=== PATIENT | female | born 1955 | race Caucasian/White ===

== ENCOUNTER → 2016-12-12 | Outpatient (CLI) | payer MEDICAID, OTHER | LOC: FIMAGING 11:57 | DX: R92.0 Mammographic microcalcification found on diagnostic imaging of breast (principal) | CPT/HCPCS: G0206 ==

== ENCOUNTER 2017-10-09 19:00 | Emergency (ER) | payer MEDICAID ==
[2017-10-09 19:21] VITALS: RESP 16
[2017-10-09] MEDS ORDERED: MECLIZINE HCL 25 MG TAB PO ONE (19:31)
[2017-10-09] MEDS ORDERED: ONDANSETRON DISINTEGRATING 4 MG TAB PO ONE (19:31)
--- NOTE | 2017-10-09 19:34 | EDPHY ---
H & P Stated Complaint: DIZZINESS X 5 DAYS Time Seen by Provider: 10/09/17 19:21 HPI/ROS: CHIEF COMPLAINT: Vertigo HISTORY OF PRESENT ILLNESS: The patient is a 62-year-old female who comes to the emergency department complaining of paroxysmal vertigo. She states that it began on Monday when she woke up from bed. It has been intermittent ever since and is more severe when she changes positions such as sitting up, bending over turning her head right or left. No trauma. No fever. No weakness numbness or paralysis. No bowel or bladder abnormalities. The patient states that her mom had BPPV and she feels that her symptoms are similar. No upper respiratory symptoms. She has had mild nausea but no vomiting. Her symptoms do fatigued after change in position. She denies chest pain or palpitations. REVIEW OF SYSTEMS: Constitutional: denies: chills, fever, recent illness, recent injury EENTM: denies: blurred vision, double vision, nose congestion Respiratory: denies: cough, shortness of breath Cardiac: denies: chest pain, irregular heart rate, lightheadedness, palpitations Gastrointestinal/Abdominal: denies: abdominal pain, diarrhea, vomiting, blood streaked stools Genitourinary: denies: dysuria, frequency, hematuria, pain Musculoskeletal: denies: joint pain, muscle pain Skin: denies: lesions, rash, jaundice, bruising Neurological: denies: headache, numbness, paresthesia, tingling, weakness Hematologic/Lymphatic: denies: blood clots, easy bleeding, easy bruising Immunologic/allergic: denies: HIV/AIDS, transplant EXAM: GENERAL: Well-appearing, well-nourished and in no acute distress. HEAD: Atraumatic, normocephalic. EYES: Nystagmus primarily to the left worsened by Yann maneuver. Pupils equal round and reactive to light, extraocular movements intact, sclera anicteric, small ptyrigeon left eye ENT: TMs normal, nares patent, oropharynx clear without exudates. Moist mucous membranes. NECK: Normal range of motion, supple without lymphadenopathy or JVD. LUNGS: Breath sounds clear to auscultation bilaterally and equal. No wheezes rales or rhonchi. HEART: Regular rate and rhythm without murmurs, rubs or gallops. ABDOMEN: Soft, nontender, normoactive bowel sounds. No guarding, no rebound. No masses appreciated. BACK: No CVA tenderness, no spinal tenderness, step-offs or deformities EXTREMITIES: Normal range of motion, no pitting or edema. No clubbing or cyanosis. NEUROLOGICAL: NIH stroke score 0, Cranial nerves II through XII grossly intact. Normal speech, normal gait. 5/5 strength, normal movement in all extremities, normal sensation, normal cerebellar exam, normal balance on each foot. PSYCH: Normal mood, normal affect. SKIN: Warm, dry, normal turgor, no visible rashes or lesions. Source: Patient Exam Limitations: No limitations - Personal History Current Tetanus Diphtheria and Acellular Pertussis (TDAP): No - Medical/Surgical History Hx Asthma: No Hx Chronic Respiratory Disease: No Hx Diabetes: No Hx Cardiac Disease: No Hx Renal Disease: No Hx Cirrhosis: No Hx Alcoholism: No Hx HIV/AIDS: No Hx Splenectomy or Spleen Trauma: No Other PMH: depression - Family History Significant Family History: No pertinent family hx - Social History Smoking Status: Current every day smoker Alcohol Use: Sober Drug Use: None Constitutional: Initial Vital Signs Temperature (C) 36.9 C 10/09/17 19:19 Heart Rate 95 10/09/17 19:19 Respiratory Rate 16 10/09/17 19:19 Blood Pressure 132/82 H 10/09/17 19:19 O2 Sat (%) 92 10/09/17 19:19 O2 Delivery Mode Room Air Allergies/Adverse Reactions: Penicillins Allergy (Unknown, Verified 10/08/14 11:51) Home Medications: Medication Instructions Recorded Amitriptyline HCl [Elavil] 50 mg PO HS 10/08/14 Citalopram Hydrobromide [Celexa] 40 mg PO DAILY 10/08/14 Wellbutrin 100mg (RX) 10/12/15 Estradiol 08/22/16 Baclofen 10/09/17 GABAPENTIN 10/09/17 Hydroxyzine HCl 10/09/17 Meclizine HCl [Meclizine HCl 25 mg 25 mg PO BID #20 tab 10/09/17 (RX,OTC)] Progesterone 10/09/17 Ranitidine HCl 10/09/17 rOPINIRole HCL 10/09/17 Medical Decision Making ED Course/Re-evaluation: 8:40 p.m. the patient is feeling much better after meclizine. She is no longer is having vertigo. I offered to perform the Yann maneuver again because she could not tolerated the 1st time. and we reviewed the procedure on video. The patient however declines and states that she would prefer to go home continue take the medicine as needed and follow up with her primary doctor. She has an appointment on . I will also refer her to ENT. We discussed signs of CVA and indications for returning sooner. She understands that we cannot completely rule that out at this time. Differential Diagnosis: Partial list of the Differential diagnosis considered include but were not limited to; benign positional vertigo, posterior CVA and although unlikely based on the history and physical exam, I also considered dissection, infection , arrhythmia. I discussed these differential diagnoses and the plan with the patient as well as the usual and expected course. The patient understands that the diagnosis is provisional and that in medicine we are not always correct and that further workup is often warranted. Usual and customary warnings were given. All of the patient's questions were answered. The patient was instructed to return to the emergency department should the symptoms at all worsen or return, otherwise to followup with the physician as we discussed. - Data Points Medications Given: Discontinued Medications Meclizine HCl (Meclizine Hcl) 50 mg PO EDNOW ONE Stop: 10/09/17 19:32 Last Admin: 10/09/17 19:45 Dose: 50 mg Ondansetron HCl (Zofran Odt) 4 mg PO EDNOW ONE Stop: 10/09/17 19:32 Last Admin: 10/09/17 19:45 Dose: 4 mg Departure - Departure Disposition: Home, Routine, Self-Care Clinical Impression: Benign paroxysmal positional vertigo Qualifiers: Laterality: left Qualified Code(s): H81.12 - Benign paroxysmal vertigo, left ear Condition: Good Instructions: Benign Paroxysmal Positional Vertigo (ED) Referrals: SANYA ALFRED,Khloe [Primary Care Provider] - As per Instructions Alva Green MD [Medical Doctor] - As per Instructions Prescriptions: Meclizine HCl [Meclizine HCl 25 mg (RX,OTC)] 25 mg PO BID #20 tab
[2017-10-09 20:55] VITALS: BP 130/79; PULSE 83; TEMP 98.2; O2SAT 94
== END 2017-10-09 20:54 | disposition home or self-care (01) ==
LOC: CED 19:00
DX: H81.12 Benign paroxysmal vertigo, left ear (principal); F17.200 Nicotine dependence, unspecified, uncomplicated

== ENCOUNTER 2018-09-06 13:40 | Emergency (ER) | payer MEDICAID ==
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
[2018-09-06 15:47] VITALS: BP 140/79
== END 2018-09-06 15:10 | disposition home or self-care (01) ==
LOC: CED 13:40
DX: R07.89 Other chest pain (principal); R91.1 Solitary pulmonary nodule; F17.200 Nicotine dependence, unspecified, uncomplicated; Z88.0 Allergy status to penicillin
CPT/HCPCS: 71046-PO

== ENCOUNTER 2019-02-17 17:25 | Emergency (ER) | payer MEDICAID | END 2019-02-17 18:09 | disposition home or self-care (01) | LOC: CED 17:25 ==